=== PATIENT | female | born 1955 | race Caucasian/White ===

== ENCOUNTER → 2023-06-24 | Outpatient (CLI) | payer MEDICARE, BC ==
--- NOTE | 2023-06-24 22:15 | CT ---
EXAMINATION TYPE: CT right knee - [facility] Protocol DATE OF EXAM: 06/24/2023 COMPARISON: None HISTORY: 68-year-old female M17.[address] DLP: 1366 mGycm. Automated exposure control for dose reduction was used. TECHNIQUE: CT for surgical planning purposes. Scanning through the pelvis, right knee, and both ankle s. Coronal and sagittal reconstructions performed. FINDINGS: Sigmoid diverticulosis. Multiple pelvic phleboliths. Uterus surgically absent. There is mild degenera tive change of both hips. [id number] knee joint effusion. Tricompartmental degenerative change, severe in the medial pat ellofemoral compartments. At the left ankle, corticated ossific density below the medial malleolus suggests sequela of prior in jury. This is to be some medial sided soft tissue swelling left ankle. Correlate for any symptoms. Th is is to be some thickening along the course of the posterior tibial tendon as well. Degenerative stephanie nge at the bilateral midfoot regions. IMPRESSION: 1. Tricompartmental osteoarthrosis right knee, severe in the medial patellofemoral compartments. Sma [id number] knee joint effusion. 2. Correlate for any symptoms along the medial aspect of the left ankle that could correspond to the deltoid ligament sprain or posterior tibial tendinopathy.
== END | disposition home or self-care (01) ==
LOC: RADCTMAIN 12:35
PROVIDERS: ATTEND Orthopaedic Surgery
DX: M76.822 Posterior tibial tendinitis, left leg (principal); M17.12 Unilateral primary osteoarthritis, left knee; M25.461 Effusion, right knee

== ENCOUNTER → 2023-07-17 | Outpatient (CLI) | payer MEDICARE, BC ==
[2023-07-17 10:21] LABS: Partial Thromboplastin Time 22.9 sec (22.0-30.0); Prothrombin Time 10.6 sec (10.0-12.5)
[2023-07-17 15:13] LABS: HCT 43.9 % (37.2-46.3); HGB 14.2 g/dL (12.0-15.0); MCHC 32.3 g/dL (32.0-37.0); MCV 92.8 FL (80.0-97.0); NRBC Per 100 WBC 0 X 10*3/uL (0.00-0.01); Platelet Count 214 X 10*3/uL (140-440); RBC 4.73 X 10*6/uL (4.10-5.20); RDW 14.1 % (11.5-14.5); WBC 5.64 X 10*3/uL (4.50-10.00)
[2023-07-17 15:31] LABS: Albumin 4.3 g/dL (3.8-4.9); BUN/Creat Ratio 21.42 Ratio (12.00-20.00); Blood Urea Nitrogen 25.7 mg/dL (9.0-27.0); Calcium 10.1 mg/dL (8.7-10.3); Carbon Dioxide 28.3 mmol/L (21.6-31.8); Chloride 103 mmol/L (96-109); Glucose 101 mg/dL (70-110); Potassium 4.3 mmol/L (3.5-5.5); Sodium 141 mmol/L (135-145); Total Protein 6.6 g/dL (6.2-8.2)
[2023-07-17 15:32] LABS: ALT 15 U/L (8-44); AST 18 U/L (13-35); Albumin/Globulin Ratio 1.87 Ratio (1.60-3.17); Alkaline Phosphatase 62 U/L (41-126); Globulin 2.3 g/dL (1.6-3.3); Total Bilirubin 0.5 mg/dL (0.3-1.2)
[2023-07-17 18:29] LABS: Appearance,Urine Turbid (Clear); Bilirubin,Urine Negative (Negative); Blood,Urine Negative (Negative); Color,Urine Yellow (Yellow); Ketones,Urine Trace (Negative); Nitrite,Urine Negative (Negative); PH, Urine 5.5; Specific Gravity,Urine 1.022 (1.001-1.030)
[2023-07-17 18:37] LABS: Bacteria,Urine None Seen (None Seen)
== END | disposition home or self-care (01) ==
LOC: LABPAT 08:57
PROVIDERS: ATTEND Orthopaedic Surgery
DX: Z01.812 Encounter for preprocedural laboratory examination (principal); E11.9 Type 2 diabetes mellitus without complications; M17.11 Unilateral primary osteoarthritis, right knee
CPT/HCPCS: 36415; 80053; 81001; 83036; 85027; 85610; 85730; 87070

== ENCOUNTER → 2023-07-24 | Outpatient (CLI) | payer MEDICARE, BC | END | disposition home or self-care (01) | LOC: LABWHC1 09:23 | PROVIDERS: ATTEND Orthopaedic Surgery | DX: M17.11 Unilateral primary osteoarthritis, right knee (principal) | CPT/HCPCS: 36415; 83036 ==

== ENCOUNTER 2023-07-30 13:22 | Day surgery (SDC) | payer MEDICARE, BC ==
[2023-07-23 13:43] VITALS: BMI 38.7
[~2023-07-30 13:22] MED LIST: ACETAMINOPHEN TAB 500 MG TAB PO PRN; DEXAMETHASONE SOD PHOSPHATE 10 MG/ML 1 ML VIAL IV PRN; DOCUSATE 100 MG CAP PO PRN; FAMOTIDINE 20 MG/2 ML VIAL IVP PRN; HYDROmorphone 0.5 MG/0.5 ML SYRINGE IVP PRN; KETOROLAC 15 MG/ML 1 ML VIAL IVP PRN; LACTATED RINGERS 1,000 ML IV SCH; LIDOCAINE 1% (10MG/ML) FOR IV START INTRADERMA PRN; ONDANSETRON 4 MG/2 ML VIAL IVP PRN; TRANEXAMIC 1,000 MG/100ML-NACL 1,000 MG in SALINE 1 100ML.BAG IV PRN; TRANEXAMIC 1,000 MG/100ML-NACL 1,000 MG in SALINE 1 100ML.BAG IVPB PRN; oxyCODONE ER 10 MG TAB.ER.12H PO PRN
[2023-07-30] MEDS ORDERED: fentaNYL (PF) 50 MCG/ML 2 ML AMP IVP ONE (15:22)
[2023-07-30] MEDS ORDERED: MIDAZOLAM 2 MG/2 ML VIAL IVP ONE (15:22)
--- NOTE | 2023-07-30 16:05 | P.ANPRN ---
Procedure Note - Anesthesia - Nerve Block Performed Right Adductor Canal Single Time Out Performed: Yes (1522) Date of Procedure: 07/30/23 Procedure Start Time: Procedure Stop Time: Location of Patient: PreOp Indication: Acute Post-Operative Pain, Requested by Surgeon Specifically requested for management of pain by DrMisbah: Jose Daniel Marquez Sedation Type: Sedate with meaningful contact maintained Preparation: Sterile Prep Position: Supine Catheter: None Needle Types: Pajunk Needle Gauge: 21 Ultrasound used to visualize needle placement: Yes Ultrasound used to observe medication spread: Yes Injectate: 0.5% Ropivacaine (see comment for volume) (15cc +10cc nacl pf) Blood Aspirated: No Pain Paresthesia on Injection Noted: No Resistance on Injection: Normal Image Stored and Saved: Yes Events: Uneventful and Well Tolerated
--- NOTE | 2023-07-30 16:06 | P.ANPRN ---
Procedure Note - Anesthesia - Nerve Block Performed Right iPack Single Time Out Performed: Yes (1522) Date of Procedure: 07/30/23 Procedure Start Time: : Procedure Stop Time: Location of Patient: PreOp Indication: Acute Post-Operative Pain, Requested by Surgeon Specifically requested for management of pain by DrMisbah: Jose Daniel Marquez Sedation Type: Sedate with meaningful contact maintained Preparation: Sterile Prep Position: Supine Catheter: None Needle Types: Pajunk Needle Gauge: 21 Ultrasound used to visualize needle placement: Yes Ultrasound used to observe medication spread: Yes Injectate: 0.5% Ropivacaine (see comment for volume) (15cc +10cc nacl pf) Blood Aspirated: No Pain Paresthesia on Injection Noted: No Resistance on Injection: Normal Image Stored and Saved: Yes Events: Uneventful and Well Tolerated
[2023-07-30] MEDS: ROPIVACAINE/EPI/CLONIDINE/KET 50 ML SYRINGE MISCELLANE PRN ×2 (17:45→18:53)
[2023-07-30] MEDS ORDERED: bisacodyL 10 MG SUPP RECTAL PRN (19:35)
[2023-07-30] MEDS ORDERED: diazePAM 5 MG TAB PO PRN (19:35)
[2023-07-30] MEDS ORDERED: MAGNESIUM HYDROXIDE 2,400 MG/30 ML CUP PO PRN (19:35)
[2023-07-30] MEDS ORDERED: ONDANSETRON 4 MG/2 ML VIAL IVP PRN (19:35)
[2023-07-30] MEDS ORDERED: HYDROmorphone 0.5 MG/0.5 ML SYRINGE IVP PRN (19:35)
[2023-07-30] MEDS ORDERED: hydrOXYzine pamoate 25 MG CAP PO PRN (19:35)
[2023-07-30] MEDS ORDERED: HYDROcodone/APAP 10-325MG 1 EACH TAB PO PRN (19:35)
[2023-07-30] MEDS ORDERED: NALOXONE 0.4 MG/ML 1 ML VIAL IV PRN (19:35)
--- NOTE | 2023-07-30 19:35 | P.OP ---
Date of Procedure: 07/30/23 Preoperative Diagnosis: 1. Severe right knee osteoarthritis 2. BMI 38.8 Postoperative Diagnosis: Same Procedure(s) Performed: 1. Right total knee arthroplasty 2. Computer assisted musculoskeletal navigation using CT/MRI images 3. Application of negative pressure incisional wound VAC, right knee less than 50 cm (Incision 15 cm Implants: 1. [employer] CR Femur Size #5 2. [employer] [place] Tibial Base Size # 3. [employer] CS poly Size #11 4. [employer] all poly patella, Size #29 Anesthesia: LEXIE, regional Surgeon: Jose Daniel Marquez Estimated Blood Loss (ml): 200 IV fluids (ml): 800 Pathology: none sent Condition: stable Disposition: PACU Indications for Procedure: I met with the patient preoperatively in the office setting and discussed treatment of their symptomatic knee arthritis. They failed a long course of nonsurgical treatment and elected to proceed with an elective total knee replacement. I discussed the potential risks and complications at length and gave them ample time to ask questions. Risks discussed included: risks from anesthesia, superficial site surgical infection, acute and/or chronic periprosthetic joint infection, delayed wound healing, drainage, wound necrosis, instability, stiffness, stiffness requiring manipulation and/or revision surgery, damage to local blood vessels or nerves, aseptic loosening of the implants, extensor mechanism issues including disruption, patellar maltracking, avascular necrosis etc., continued or worsened knee pain, generalized dissatisfaction with surgical outcome, need for revision surgery, an inability to regain preinjury level of function, DVT, PE, other medical complications, and possibly loss of life or limb. The patient voiced their understanding that while these are the most common complications other less common complications are possible. They provided both their verbal and written consent to go forward with surgery. Operative Findings: Severe tricompartmental knee osteoarthritis Description of Procedure: The patient was identified in preoperative holding and the correct operative extremity was verified and marked with a marker. I reviewed the consent form with the patient at length. All of their questions were answered. The patient was given a block by anesthesia. They were then brought back to the operating room. They were transferred onto the operating room table where a general anesthetic, preoperative antibiotics, and tranexamic acid were administered by anesthesia. A tourniquet was applied to the proximal aspect of the operative extremity. The contralateral extremity was padded under the heel and secured to the operating room table with a nonsterile blue towel and tape. The ipsilateral arm was carefully draped across the patient's chest and secured with a pillow and foam. A post was applied over the lateral aspect of the ipsilateral thigh and a bolster was placed under the ipsilateral foot. I verified that the op erative extremity was stable and the knee was flexed to 90. The operative extremity was then placed in a leg jonas, nonsterile drapes were applied, and the extremity was prepped and draped sterilely in the standard sterile fashion. Prior to starting surgery timeout was performed identifying the correct patient, operative extremity, and procedure. The leg was then elevated, exsanguinated with an Esmarch bandage, and the tourniquet was inflated. An anterior midline incision was made sharply with a scalpel. Once I had dissected deep to the superficial fascial layer medial and lateral flaps were elevated. A medial parapatellar arthrotomy was created. Upon opening the knee joint there were diffuse arthritic changes in all 3 compartments. The anterior horn of the medial meniscus were sharply released and a medial release was performed around the posterior medial corner of the knee to facilitate retractor placement. The fat pad was excised with electrocautery. The patella was found to be severely arthritic and a provisional cut was made with a sagittal saw to facilitate mobilization of the extensor mechanism during the procedure. Remnants of the ACL and PCL were then excised from the notch. 4 mm pins were then placed within the incision in the medial distal femur and proximal tibia. Arrays were applied to the pins and I verified they were completely tightened. The knee was then registered with the [employer] robot and manipulations in implant position were made to balance the knee and opitmize implant position. Using the [employer] robotic saw all cuts were made in accordance with our plan. After all bony fragments had been removed the cuts were verified with the planar probe. The tibia was then subluxed forward and sized. The knee was brought into flexion and a lamina sand molder was placed to allow removal of the meniscal remnants both medially and laterally as well as posterior osteophytes. Local anesthetic was then infiltrated around the joint capsule. Trial implants were then placed within the knee. Range of motion and collateral ligament tension was then evaluated. Adjustments in implant size and position were then made accordingly. Once the knee was felt to be appropriately balanced the Dallas pins were removed. The patella was then recut, sized, and punched. A trial patellar button was then placed. With the trial components in place, the patella tracked midline. The femur was then drilled and the trial component removed. The trial tibial component was then appropriately rotated, pinned, and prepared for the keel. All trial components were then removed from the knee. The knee was thoroughly irrigated with pulsatile lavage. Cement was prepared via vacuum mixing in a bowl on the back table. I then hand pressurized cement into the femur and tibia and placed the implants beginning with the tibial base tray and poly liner, femoral component, and finally the patellar button. All extruded cement was removed including from the pin sites. Once the cement had hardened the knee was evaluated one final time with the final polyethylene liner in place. The knee had full extension and flexion and felt stable to varus and valgus stress thr oughout the arc of motion. The tourniquet was released and with the tourniquet down the patella tracked midline. All bleeders were controlled with electrocautery. The knee was then soaked for 3 minutes with a dilute Betadine soak. The knee was thoroughly irrigated using 3 L of sterile saline and pulsatile lavage. The extensor mechanism was then reapproximated using pop off Vicryl sutures followed by a running barbed suture. The knee was then closed in layers with a 0 strata fix for the deep fascial layer, 2-0 strata fix for the superficial subcutaneous layer and Monocryl for the skin. The patient's body habitus and BMI an incisional wound VAC was applied over the closed incision. I verified that all instrument, sponge, and sharp counts were correct. The patient was then transferred off the operating room table, extubated, and brought to recovery having tolerated the procedure well. PLAN: The patient can weight-bear as tolerated on the operative extremity. DVT prophylaxis with aspirin 81 mg twice a day based on preoperative risk stratification. Internal medicine for preoperative medical management
[2023-07-30] MEDS ORDERED: SODIUM CHLORIDE 0.9% 1,000 ML IV SCH (19:45)
[2023-07-30 20:00] VITALS: TEMP 97.4
[2023-07-30] MEDS ORDERED: LACTATED RINGERS 1,000 ML IV ONE (20:05)
[2023-07-30] MEDS ORDERED: SENNOSIDES-DOCUSATE SODIUM 1 EACH TAB PO SCH (21:00)
[2023-07-30] MEDS: ASPIRIN 81 MG PO SCH (21:17)
[2023-07-30] MEDS ORDERED: TEMAZEPAM 15 MG CAP PO PRN (22:00)
--- NOTE | 2023-07-30 22:15 | XR ---
EXAMINATION TYPE: XR knee limited RT DATE OF EXAM: 07/30/2023 7:53 PM CLINICAL INDICATION:Female, 68 years old with history of Evaluation for Postop abnormality and alignm ent; [facility] COMPARISON: CT 06/24/2023 TECHNIQUE: XR knee limited RT; examined in Frontal, lateral and oblique projections. TECHNIQUE AND FINDINGS: Two views of the right knee. A total knee arthroplasty is in place, appears intact and normally align ed. No abnormal perihardware lucency or fracture. No significant malalignment. Posterior resurfacing changes of the patella. Soft tissues show no unexpected radiopaque foreign body. Some regional soft t issue gas is present, not unexpected postoperative. IMPRESSION: Status post placement of total knee arthroplasty. No evidence of complication.
[2023-07-30] MEDS: carvediloL 12.5 MG TAB PO SCH (22:56)
[2023-07-31] MEDS: HYDROcodone/APAP 5-325MG 1 EACH TAB PO PRN ×2 (00:27→08:17)
--- NOTE | 2023-07-31 01:25 | P.CONS ---
History of Present Illness - Reason for Consult Consult date: 07/30/23 perioperative medical management - Chief Complaint right tota knee - History of Present Illness 68 year old female with hypertension patient coming in for scheduled right total knee arthroplasty due to advanced degenerative joint disease failed conservative management , and started to affect and limit ADLs. patient tolerated procedure well, no observed immediate post op complications, deneis any chest pain or trouble breathing , denies any nausea or vomiting , abd pain , chest pain . pain is well controlled , patient has not walked yet. deneis any smoking , illicit drugs or heavy alcohol review of systems Pertinent positives as noted in HPI. All other systems were reviewed and are negative on exam Constitutional: No acute distress, conversant, pleasant Eyes: Anicteric sclerae, moist conjunctiva, Pupils equal round reactive to light ENMT: NC/AT Oropharynx clear, no erythema, or exudates Neck: Supple, no masses, or JVD No carotid bruits No thyromegaly Lungs: Clear to auscultation Clear to percussion Normal respiratory effort, no accessory muscle use Cardiovascular: Heart regular in rate and rhythm, No murmurs, gallops, or rubs No peripheral edema Abdominal: Soft Nontender, no guarding, rebound or rigidity Abdomen moving with respiration Normoactive bowel sounds No hepatomegaly, No splenomegaly No palpable mass No abdominal wall hernia noted Extremities: right knee wound vac in place No digital cyanosis No clubbing Pedal pulses intact and symmetrical Radial pulses intact and symmetrical No calf tenderness Psychiatric: Alert and oriented to person, place and time Appropriate affect fair judgement Neuro Muscles Strength 5/5 in all 4 extremities with limited exam over right lower extremity due to surgery Sensation to light touch grossly present throughout Cranial nerves II-XII grossly intact Lymphatics: no palpable cervical or supraclavicular lymph nodes Past Medical History Past Medical History: Coronary Artery Disease (CAD), GERD/Reflux, Hyperlipidemia, Hypertension, Osteoarthritis (OA) Additional Past Medical History / Comment(s): SUPERFICIAL BLOOD CLOTS History of Any Multi-Drug Resistant Organisms: None Reported Past Surgical History: Back Surgery, Cholecystectomy, Heart Catheterization, Heart Catheterization With Stent, Hysterectomy Additional Past Surgical History / Comment(s): CARDIAC STENTS X3, L4-L5 FUSION, AFTER FIRST HEART CATH SHE HAD A PROCEDURE FOR A TORN VEIN Past Anesthesia/Blood Transfusion Reactions: No Reported Reaction Date of Last Stent Placement:: 12/27/2008 Past Psychological History: No Psychological Hx Reported Smoking Status: Never smoker Past Alcohol Use History: None Reported Past Drug Use History: None Reported - Past Family History Mother Additional Family Medical History / Comment(s): "HEART ISSUES" Medications and Allergies Home Medications Medication Instructions Recorded Confirmed Type Aspirin [Adult Low Dose Aspirin EC] 81 mg PO DAILY 07/23/23 07/30/23 History Atorvastatin [Lipitor] 40 mg PO DAILY 07/23/23 07/30/23 History Chlorthalidone 0.5 tab PO DAILY 07/23/23 07/30/23 History Omeprazole 20 mg PO DAILY 07/23/23 07/30/23 History carvediloL [Coreg] 12.5 mg PO BID 07/23/23 07/30/23 History lisinopriL [Prinivil] 20 mg PO DAILY 07/23/23 07/30/23 History Allergies Allergy/AdvReac Type Severity Reaction Status Date / Time No Known Allergies Allergy Verified 07/30/23 13:54 Physical Exam Vitals: Vital Signs Temp Pulse Resp BP Pulse Ox 07/30/23 20:24 53 L 12 110/55 95 07/30/23 20:09 56 L 12 104/53 94 L 07/30/23 19:54 57 L 14 108/58 94 L 07/30/23 19:39 97.4 F L 65 16 109/53 94 L 07/30/23 15:34 52 L 16 109/59 99 07/30/23 13:53 97.8 F 58 L 16 118/58 98 Intake and Output 07/30/23 07/30/23 07/31/23 14:59 22:59 06:59 Intake Total 200 1150 Output Total 200 Balance 200 950 Intake: IV 200 1150 Output: Estimated Blood Loss 200 Other: Weight 109 kg 109 kg Assessment and Plan Assessment: right total knee arthroplasty pod zero management per orthpedic team pain control and dvt ppx hypertension , controlled resume coreg, lisinopril GI PPX on protonix 40 mg po daily CAD resume aspirin and statin check CBC and CMP in AM stable from medical standpoint at this time thank you for this consultation
[2023-07-31] MEDS ORDERED: PANTOPRAZOLE 40 MG TABLET PO SCH (07:30)
--- NOTE | 2023-07-31 07:37 | P.DS ---
Providers Date of admission: 07/30/2023 Attending physician: Jose Daniel aMrquez Consults: 07/30/23 19:35 Consult Physician Routine Consulting Provider: Natalya Granados Consult Reason/Comments: post op medical management Do you want consulting provider notified?: Yes Primary care physician: Nj Vasquez Hospital Course: The patient is a very pleasant 68-year-old female with advanced arthritis in her right knee was admitted under my care on 07/30/2023. She was taken to the operating room and an uncomplicated total knee replacement was performed. Following surgery she was transferred to the orthopedic floor in stable condition. She was seen on postoperative day #1 and was doing well. Her pain is well-controlled. She had an incisional wound VAC in place with good seal. Motor and sensory function are intact in her right leg. Her thigh and calf are soft. Internal medicine was consulted for perioperative medical management. She will to physical therapy. She ultimately did well and was cleared for discharge home. Plan - Discharge Summary Discharge Rx Participant: No New Discharge Prescriptions: New Diclofenac Sodium [Voltaren] 75 mg PO BID #60 tab HYDROcodone/APAP 5-325MG [Gladstone 5-325] 1 - 2 tab PO Q6HR PRN #32 tab PRN Reason: Pain Aspirin 81 mg PO BID #60 tab Docusate [Colace] 100 mg PO BID #28 capsule Omeprazole 40 mg PO DAILY #30 cap No Action lisinopriL [Prinivil] 20 mg PO DAILY carvediloL [Coreg] 12.5 mg PO BID Chlorthalidone 0.5 tab PO DAILY Omeprazole 20 mg PO DAILY Atorvastatin [Lipitor] 40 mg PO DAILY Aspirin [Adult Low Dose Aspirin EC] 81 mg PO DAILY Discharge Medication List Aspirin [Adult Low Dose Aspirin EC] 81 mg PO DAILY 07/23/23 [History] Atorvastatin [Lipitor] 40 mg PO DAILY 07/23/23 [History] Chlorthalidone 0.5 tab PO DAILY 07/23/23 [History] Omeprazole 20 mg PO DAILY 07/23/23 [History] carvediloL [Coreg] 12.5 mg PO BID 07/23/23 [History] lisinopriL [Prinivil] 20 mg PO DAILY 07/23/23 [History] Aspirin 81 mg PO BID #60 tab 07/31/23 [Rx] Diclofenac Sodium [Voltaren] 75 mg PO BID #60 tab 07/31/23 [Rx] Docusate [Colace] 100 mg PO BID #28 capsule 07/31/23 [Rx] HYDROcodone/APAP 5-325MG [Gladstone 5-325] 1 - 2 tab PO Q6HR PRN #32 tab 07/31/23 [Rx] Omeprazole 40 mg PO DAILY #30 cap 07/31/23 [Rx] Follow up Appointment(s)/Referral(s): Jose Daniel Marquez MD [Medical Doctor] - 1 Week Activity/Diet/Wound Care/Special Instructions: 1. Weight-bear as tolerated on your operative extremity unless instructed otherwise. Use a walker or other assistive device to ambulate. 2. Leave surgical dressing in place. If your dressing becomes saturated with blood, there is drainage, or the dressing becomes loose please contact the office. 3. It is okay to shower with your surgical dressing, but do not submerge in water (no hot tubs, bath's, swimming etc.) 4. Make sure to take her blood clot prevention medication as prescribed (aspirin, Eliquis, Xarelto, and Plavix are commonly prescribed medications for blood clot prevention) 5. While taking Gladstone or Percocet for pain make sure you're taking a stool softener (Colace) and drink lots of water. 6. Keep all follow-up appointments as scheduled. You will usually be seen in 1-2 weeks following surgery. 7. Please contact the office with any questions or concerns [phone] Discharge Disposition: HOME SELF-CARE
[2023-07-31] MEDS: ASPIRIN 81 MG PO SCH (08:11)
[2023-07-31] MEDS: carvediloL 12.5 MG TAB PO SCH (08:11)
[2023-07-31 08:33] VITALS: BP 98/62; PULSE 95; RESP 17
[2023-07-31] MEDS ORDERED: lisinopriL 20 MG TAB PO SCH (09:00)
[2023-07-31] MEDS ORDERED: ATORVASTATIN 40 MG TAB PO SCH (09:00)
[2023-07-31 11:03] LABS: Basophils # (A) 0.02 X 10*3/uL (0.00-0.10); Basophils % (A) 0.2 %; Eosinophils # (A) 0 X 10*3/uL (0.04-0.35); Eosinophils % (A) 0 %; HCT 40.5 % (37.2-46.3); HGB 12.7 g/dL (12.0-15.0); Lymphocytes # (A) 0.48 X 10*3/uL (0.90-5.00); Lymphocytes % (A) 3.9 %; MCH 29.7 pg (27.0-32.0); MCHC 31.4 g/dL (32.0-37.0); MCV 94.8 FL (80.0-97.0); Monocytes # (A) 0.37 X 10*3/uL (0.20-1.00); NRBC Per 100 WBC 0 X 10*3/uL (0.00-0.01); Neutrophils # (A) 11.28 X 10*3/uL (1.80-7.70); Neutrophils % (A) 92.5 %; Platelet Count 191 X 10*3/uL (140-440); RBC 4.27 X 10*6/uL (4.10-5.20); RDW 13.9 % (11.5-14.5)
[2023-07-31 11:11] LABS: ALT 12 U/L (8-44); AST 16 U/L (13-35); Albumin 3.8 g/dL (3.8-4.9); Albumin/Globulin Ratio 2.24 Ratio (1.60-3.17); Alkaline Phosphatase 54 U/L (41-126); BUN/Creat Ratio 27.33 Ratio (12.00-20.00); Blood Urea Nitrogen 32.8 mg/dL (9.0-27.0); Calcium 9.1 mg/dL (8.7-10.3); Carbon Dioxide 25.2 mmol/L (21.6-31.8); Chloride 102 mmol/L (96-109); Globulin 1.7 g/dL (1.6-3.3); Glucose 120 mg/dL (70-110); Potassium 4.6 mmol/L (3.5-5.5); Sodium 137 mmol/L (135-145); Total Bilirubin 0.3 mg/dL (0.3-1.2); Total Protein 5.5 g/dL (6.2-8.2)
--- NOTE | 2023-07-31 15:13 | P.PN ---
Subjective Progress Note Date: 07/31/23 Hospital course: Patient is a very pleasant 68-year-old female with a past medical history of CAD with stent, hypertension, hyperlipidemia, and GERD. She is currently admitted under orthopedic surgery team and is status post right total knee replacement. This procedure was an elective procedure completed by Dr. Marquez secondary to severe right knee osteoarthritis. We were consulted for medical management throughout patient's hospitalization. Physical exam: Vital signs reviewed and stable. General: Nontoxic, no distress and appears stated age. Derm: Skin warm and dry, normal coloration for ethnicity. Head: Atraumatic, normocephalic and symmetric. Eyes: EOMs intact, no lid lag, and anicteric sclera Mouth: no lip lesions, mucus membranes moist Cardiovascular: regular rate and rhythm with normal S1S2, no murmur, positive posterior tibial pulses bilaterally, and cap refill < 2 seconds. Lungs: Respirations even, regular, and unlabored on room air. Lungs CTA bila terally, no rhonchi, no rales, no wheezing, and no accessory muscle usage. Abdominal: soft, nontender to palpation, no guarding, no appreciable organomegaly Ext: ROM intact. No gross muscle atrophy, no edema, no contractures Neuro: Speech clear, face symmetrical and CN II-XII grossly intact with no noted focal neuro deficits Psych: Alert and oriented to person, place, time, and situation. Appropriate and pleasant affect. Assessment and Plan of Care: Status post right total knee arthroplasty Management per primary admitting orthopedic surgery team including DVT prophylaxis, pain management, wound/dressing/drain management, weightbearing, and PT/OT. Patient currently on DVT prophylaxis with aspirin 81 mg twice daily. Hypertension Hyperlipidemia History of CAD with previous stents Patient to continue daily medication regimen with aspirin 81 mg daily, lisinopril 20 mg daily, carvedilol 12.5 mg twice daily, chlorthalidone 0.5 mg daily, and atorvastatin 40 mg daily. GERD Patient to continue daily medication regimen with omeprazole 20 mg daily. Data reviewed: Postoperative labs reviewed. CBC showed mild leukocytosis with WBC count of 12.20 and stable hemoglobin of 12.7. BMP unremarkable. Blood glucose 120. Liver profile unremarkable. Vital signs reviewed and stable. Blood pressure 98/62, heart rate 95, respiratory rate 17, temp 97.4F, SpO2 of 96% on room air. Patient is cleared from medical perspective for discharge, orthopedic surgery placing discharge orders at this time. Med rec has been completed. Thank you for allowing us to participate in the care of this pleasant patient. Do not hesitate to contact us with questions. Someone can be reached from the [facility] hospitalist group all hours of the day at [phone] or via [employer]. Patient was seen independently by Nurse Pracitioner. This document was prepared using [employer] dictation software. Please allow for errors in all source collection manager, while rare they do occur. Objective - Vital Signs Vital signs: Vital Signs Temp 97.4 F L 07/31/23 07:02 Pulse 95 07/31/23 07:02 Resp 17 07/31/23 07:02 BP 98/62 07/31/23 07:02 Pulse Ox 96 07/31/23 07:02 FiO2 Intake & Output 07/30/23 07/31/23 07/31/23 18:59 06:59 18:59 Intake Total 850 500 Output Total 200 Balance 850 300 Weight 109 kg 109 kg Intake: IV 850 500 Output: Estimated Blood Loss 200 Other: # Voids 1 - Labs CBC & Chem 7: 07/31/23 05:51 07/31/23 05:51
== END 2023-07-31 12:52 | disposition home or self-care (01) ==
LOC: OR 13:22 → 4SSUR 19:21 → OR 07-31 12:52
PROVIDERS: ATTEND Orthopaedic Surgery
DX: M17.11 Unilateral primary osteoarthritis, right knee (principal); G89.18 Other acute postprocedural pain; Z96.651 Presence of right artificial knee joint; I25.10 Atherosclerotic heart disease of native coronary artery without angina pectoris; K21.9 Gastro-esophageal reflux disease without esophagitis; I10 Essential (primary) hypertension; E78.5 Hyperlipidemia, unspecified; Z90.710 Acquired absence of both cervix and uterus; Z90.49 Acquired absence of other specified parts of digestive tract; Z95.5 Presence of coronary angioplasty implant and graft; Z79.899 Other long term (current) drug therapy; Z98.890 Other specified postprocedural states
CPT/HCPCS: 0055T; 27447; 64447; 64999; 80053; 85025